=== PATIENT | male | born 1985 | race American Indian/Alaskan Native ===

== ENCOUNTER 2016-07-09 12:08 | Emergency (ER) | payer OTHER ==
[2016-07-09 12:16] VITALS: BMI 22.6
--- NOTE | 2016-07-09 13:24 | PDOC ---
[id number] No Limitations - History of Present Illness Initial Comments: 07/09/16 14:06 The patient is a 31 year old male with no significant past medical history who presents to the emergency department with abdominal pain for 3 days. He states his pain is localized to the suprapubic and right lower quadrant, which is dull and constant in nature and does not radiate. His pain is not associated with food. He reports associated nausea but denies any vomiting, diarrhea, melena, hematochezia. The patient denies dysuria, hematuria, frequency. He also reports a 3 week history of intermittent lightheadedness, however he denies any chest pain, syncope, or palpitations. The patient reports chills and night sweats, denies fever. No recent illness, no recent travel. <Violette Cid - Last Filed: 07/09/16 14:06> <Carlos Hernandez - Last Filed: 07/17/16 02:37> - General Chief Complaint: Pain, Acute Stated Complaint: ABD PAIN. DIZZINESS Time Seen by Provider: 07/09/16 13:24 Past History <Violette Cid - Last Filed: 07/09/16 14:06> - Past Medical History Other medical history: denies - Psycho/Social/Smoking Cessation Hx Suicidal Ideation: No Smoking History: Current every day smoker Number of Cigarettes Smoked Daily: 20 Information on smoking cessation initiated: Yes 'Breaking Loose' booklet given: 07/09/16 Substance Use Type: None <Carlos Hernandez - Last Filed: 07/17/16 02:37> - Past Medical History Allergies/Adverse Reactions: Allergies Allergy/AdvReac Type Severity Reaction Status Date / Time No Known Allergies Allergy Verified 07/09/16 12:11 Home Medications: Ambulatory Orders Acetaminophen [Tylenol] 650 mg PO Q4H PRN #20 tablet 07/09/16 Ciprofloxacin [Cipro -] 500 mg PO Q12H #20 tablet 07/09/16 Metronidazole [Flagyl -] 500 mg PO Q8H #30 tablet 07/09/16 NK [No Known Home Medication] 07/09/16 Ranitidine HCl [Zantac] 150 mg PO BID PRN #20 tablet 07/09/16 Review of Systems - Review of Systems Able to Perform ROS?: Yes Comments:: 07/09/16 14:06 CONSTITUTIONAL: +Chills. No fever, no fatigue EYES: No visual changes ENT: No ear pain, no sore throat CARDIOVASCULAR: No chest pain, no palpitations RESPIRATORY: No cough, no SOB GI: +Nausea, abdominal pain. No vomiting, no constipation, no diarrhea GENITOURINARY: No dysuria, no frequency, no hematuria MUSCULOSKELETAL: No back pain, no joint pain, no myalgias SKIN: No rash NEURO: No headache <Violette Cid - Last Filed: 07/09/16 14:06> *Physical Exam - Vital Signs Last Vital Signs Temp Pulse Resp BP Pulse Ox 98.1 F 84 14 131/75 99 07/09/16 12:11 07/09/16 12:11 07/09/16 12:11 07/09/16 12:11 07/09/16 12:11 - Physical Exam Comments: 07/09/16 14:06 CONSTITUTIONAL: Well-appearing; well-nourished; in no apparent distress HEAD: Normocephalic; atraumatic EYES: PERRL; EOM intact ENMT: External appears normal; normal oropharynx NECK: Supple; non-tender; no cervical lymphadenopathy CARD: Normal S1, S2; no murmurs, rubs, or gallops RESP: Normal chest excursion with respiration; breath sounds clear and equal bilaterally; no wheezes, rhonchi, or rales ABD: +Minimal periumbilical tenderness to palpation. Soft, non-distended; no palpable organomegaly EXT: Normal ROM in all four extremities; non-tender to palpation; distal pulses intact SKIN: Warm, dry, no rash NEURO: No focal neurological deficiencies. <Violette Cid - Last Filed: 07/09/16 14:06> - Vital Signs Last Vital Signs Temp Pulse Resp BP Pulse Ox 98.1 F 84 14 131/75 99 07/09/16 12:11 07/09/16 12:11 07/09/16 12:11 07/09/16 12:11 07/09/16 12:11 <Carlos Hernandez - Last Filed: 07/17/16 02:37> ED Treatment Course - Medications Given in the ED: ED Medications Discontinued Medications Generic Name Dose Route Start Last Admin Trade Name Freq PRN Reason Stop Dose Admin Ondansetron HCl 4 mg 07/09/16 13:53 07/09/16 14:00 Zofran Injection IVPUSH 07/09/16 13:54 4 mg ONCE ONE Administration <Violette Cid - Last Filed: 07/09/16 14:06> - LABORATORY CBC & Chemistry Diagram: 07/09/16 14:22 07/09/16 14:22 <Carlos Hernandez - Last Filed: 07/17/16 02:37> Medical Decision Making - Medical Decision Making 07/09/16 16:34 Patient is well-appearing 31-year-old male who presents with atraumatic right lower quadrant/periumbilical abdominal pain. CBC/CMP/UA within normal limit. Will obtain CT that and pelvis with by mouth and IV contrast to rule out appendicitis. Will reassess. Will endorse Dr. Lechuga. <Carlos Hernandez - Last Filed: 07/17/16 02:37> *DC/Admit/Observation/Transfer - Attestations Scribe Attestion: 07/09/16 14:06 Documentation prepared by Violette Cid, acting as medical secretary teacher for Carlos Hernandez MD. <Violette Cid - Last Filed: 07/09/16 14:06> - Attestations Physician Attestion: 07/09/16 16:34 The documentation was prepared by the scribe under my direct supervision. I have reviewed the documentation which correctly represents the findings, medical decision-making and critical action taken by me. <Calros Hernandez - Last Filed: 07/17/16 02:37> Diagnosis at time of Disposition: Colitis - Discharge Dispostion Disposition: HOME Condition at time of disposition: Stable - Prescriptions Prescriptions: Ciprofloxacin [Cipro -] 500 mg PO Q12H #20 tablet Metronidazole [Flagyl -] 500 mg PO Q8H #30 tablet Acetaminophen [Tylenol] 650 mg PO Q4H PRN #20 tablet PRN Reason: Pain/Fever Ranitidine HCl [Zantac] 150 mg PO BID PRN #20 tablet PRN Reason: GERD - Patient Instructions Printed Discharge Instructions: DI for Colitis Additional Instructions: Please take the two antibiotics (ciprofloxacin and flagyl) as prescribed for the next 10 days. Take 650 mg tylenol every 4 hours as needed for pain/fever. Take 150 mg zantac every 12 hours as needed for acid reflux. Follow up with a computer systems design analyst for an evaluation for a possible colonoscopy. A few percentage of these may be inflammatory, which is why it's important to complete the antibiotics and follow up wit [facility].
[2016-07-09] MEDS ORDERED: ONDANSETRON 4 MG/2 ML VIAL IVPUSH ONE (13:53)
[2016-07-09] MEDS ORDERED: SODIUM CHLORIDE 1,000 ML IV STA (13:53)
[2016-07-09] MEDS ORDERED: ONDANSETRON 4 MG/2 ML VIAL ONE (13:56)
[2016-07-09 14:47] LABS: BASOPHIL 0.7 % (0-2.0); EOSINOPHIL 1.5 % (0-4.5); MCH 29.9 pg (25.7-33.7); MCHC 32.8 g/dl (32.0-35.9); MEAN CELL VOLUME 91.1 fl (80-96); MEAN PLT VOLUME 10.1 fl (7.5-11.1); NEUTROPHILS 55.4 % (42.8-82.8); PLATELET COUNT 160 K/MM3 (134-434); RDW 14.2 % (11.9-15.9); WHITE BLOOD COUNT 8.1 K/mm3 (4.0-10.0)
[2016-07-09 15:01] LABS: ALBUMIN 4.3 g/dl (3.4-5.0); ALK PHOS 85 U/L (45-117); ANION GAP 8 (8-16); BILIRUBIN,TOTAL 0.3 mg/dL (0.2-1.0); CO2 25 mmol/L (21-32); CREATININE 0.9 mg/dL (0.7-1.3); GLUCOSE,RANDOM 82 mg/dL (74-106); SGOT/AST 29 U/L (15-37); TOT PROT 7.4 g/dl (6.4-8.2)
[2016-07-09 15:06] LABS: SGPT/ALT 46 U/L (12-78)
[2016-07-09 15:39] LABS: URINE APPEARANCE CLEAR; URINE BILIRUBIN NEGATIVE (NEGATIVE); URINE BLOOD NEGATIVE (NEGATIVE); URINE COLOR COLORLESS; URINE GLUCOSE (UA) NEGATIVE (NEGATIVE); URINE KETONE NEGATIVE (NEGATIVE); URINE LEUK ESTERASE NEGATIVE (NEGATIVE); URINE NITRITE NEGATIVE (NEGATIVE); URINE PROTEIN NEGATIVE (NEGATIVE); URINE UROBILINOGEN NEGATIVE E.U./dl (0.2-1.0)
[2016-07-09] MEDS ORDERED: CIPROFLOXACIN 250 MG TABLET (RESTRICTED TO ID) PO ONE (18:04)
[2016-07-09] MEDS ORDERED: metroNIDAZOLE 500 MG TABLET PO ONE (18:04)
[2016-07-09] MEDS ORDERED: ACETAMINOPHEN 325 MG TABLET (FP) PO ONE (18:10)
[2016-07-09] MEDS ORDERED: RANITIDINE HCL 150 MG TABLET (FP) PO ONE (18:10)
--- NOTE | 2016-07-09 18:12 | PDOC ---
*Physical Exam - Vital Signs Last Vital Signs Temp Pulse Resp BP Pulse Ox 98.1 F 84 14 131/75 100 07/09/16 12:11 07/09/16 12:11 07/09/16 12:11 07/09/16 12:11 07/09/16 13:30 ED Treatment Course - LABORATORY CBC & Chemistry Diagram: 07/09/16 14:22 07/09/16 14:22 - ADDITIONAL ORDERS Additional order review: Laboratory Results 07/09/16 07/09/16 15:10 14:22 Sodium 141 Potassium 4.2 Chloride 108 H Carbon Dioxide 25 Anion Gap 8 BUN 9 Creatinine 0.9 Creat Clearance w eGFR > 60 Random Glucose 82 Calcium 9.0 Total Bilirubin 0.3 AST 29 ALT 46 Alkaline Phosphatase 85 Total Protein 7.4 Albumin 4.3 Urine Color Colorless Urine Appearance Clear Urine pH 7.0 Ur Specific Kennard 1.005 Urine Protein Negative Urine Glucose (UA) Negative Urine Ketones Negative Urine Blood Negative Urine Nitrite Negative Urine Bilirubin Negative Urine Urobilinogen Negative Ur Leukocyte Esterase Negative 07/09/16 14:22 RBC 5.03 MCV 91.1 MCHC 32.8 RDW 14.2 MPV 10.1 Neutrophils % 55.4 Lymphocytes % 34.4 Monocytes % 8.0 Eosinophils % 1.5 Basophils % 0.7 - Medications Given in the ED: ED Medications Discontinued Medications Generic Name Dose Route Start Last Admin Trade Name Freq PRN Reason Stop Dose Admin Sodium Chloride 1,000 mls @ 1,000 mls/hr 07/09/16 13:53 07/09/16 14:00 Normal Saline - IV 07/09/16 14:52 1,000 mls/hr ASDIR STA Administration Ondansetron HCl 4 mg 07/09/16 13:53 07/09/16 14:00 Zofran Injection IVPUSH 07/09/16 13:54 4 mg ONCE ONE Administration Medical Decision Making - Medical Decision Making 07/09/16 18:16 Sign-out received from outgoing Emergency Physician Dr. Hernandez Pt interviewed and examined Ancillary studies reviewed Case discussed in detail with oncoming Emergency Physician including history, physical exam and ancillary studies. Vital Signs Temp Pulse Resp BP Pulse Ox 98.1 F 84 14 131/75 100 07/09/16 12:11 07/09/16 12:11 07/09/16 12:11 07/09/16 12:11 07/09/16 13:30 CBC, BMP 07/09/16 14:22 07/09/16 14:22 CMP Sodium 141 mmol/L (136-145) 07/09/16 14:22 Potassium 4.2 mmol/L (3.5-5.1) 07/09/16 14:22 Chloride 108 mmol/L (98-107) H 07/09/16 14:22 Carbon Dioxide 25 mmol/L (21-32) 07/09/16 14:22 Anion Gap 8 (8-16) 07/09/16 14:22 BUN 9 mg/dL (7-18) 07/09/16 14:22 Creatinine 0.9 mg/dL (0.7-1.3) 07/09/16 14:22 Creat Clearance w eGFR > 60 (>60) 07/09/16 14:22 Random Glucose 82 mg/dL (74-106) 07/09/16 14:22 Calcium 9.0 mg/dL (8.5-10.1) 07/09/16 14:22 Total Bilirubin 0.3 mg/dL (0.2-1.0) 07/09/16 14:22 AST 29 U/L (15-37) 07/09/16 14:22 ALT 46 U/L (12-78) 07/09/16 14:22 Alkaline Phosphatase 85 U/L (45-117) 07/09/16 14:22 Total Protein 7.4 g/dl (6.4-8.2) 07/09/16 14:22 Albumin 4.3 g/dl (3.4-5.0) 07/09/16 14:22 CT scan of abdomen and pelvis. Questionable rectosigmoid thickening. Will treat as colitis. Will prescribe cipro and flagyl. I instructed the patient that a small percentage of these may be inflammatory, ie Crohn's Disease, UC Pt verbalizes understanding, stating he will follow up with a GI doctor. I discussed the physical exam findings, ancillary test results and final diagnoses with the patient. I answered all of the patient's questions. The patient was satisfied with the care received and felt comfortable with the discharge plan and treatment plan. The patient will call their primary care physician within 24 hours to arrange follow-up and will return to the Emergency Department with any new, persistant or worsening symptoms. *DC/Admit/Observation/Transfer Diagnosis at time of Disposition: Colitis - Discharge Dispostion Disposition: HOME Condition at time of disposition: Stable Admit: No - Prescriptions Prescriptions: Ciprofloxacin [Cipro -] 500 mg PO Q12H #20 tablet Metronidazole [Flagyl -] 500 mg PO Q8H #30 tablet Acetaminophen [Tylenol] 650 mg PO Q4H PRN #20 tablet PRN Reason: Pain/Fever Ranitidine HCl [Zantac] 150 mg PO BID PRN #20 tablet PRN Reason: GERD - Patient Instructions Printed Discharge Instructions: DI for Colitis Additional Instructions: Please take the two antibiotics (ciprofloxacin and flagyl) as prescribed for the next 10 days. Take 650 mg tylenol every 4 hours as needed for pain/fever. Take 150 mg zantac every 12 hours as needed for acid reflux. Follow up with a mediation commissioner for an evaluation for a possible colonoscopy. A few percentage of these may be inflammatory, which is why it's important to complete the antibiotics and follow up wit [facility].
[2016-07-09] MEDS ORDERED: RANITIDINE HCL 150 MG TABLET (FP) ONE (18:20)
[2016-07-09] MEDS ORDERED: ACETAMINOPHEN 325 MG TABLET (FP) ONE (18:20)
[2016-07-09] MEDS ORDERED: metroNIDAZOLE 250 MG TABLET ONE (18:20)
[2016-07-09 18:47] VITALS: BP 128/74; PULSE 77; TEMP 98.3
== END 2016-07-09 18:52 | disposition home or self-care (01) ==
LOC: JER 12:08
PROC: 3E033GC Introduction of Other Therapeutic Substance into Peripheral Vein, Percutaneous Approach (ICD-10-PCS; principal; 2016-07-09)
DX: K52.9 Noninfective gastroenteritis and colitis, unspecified (principal)
CPT/HCPCS: 36415; 74177-TC; 80053; 81003; 85025; 99283-25; Q9967

== ENCOUNTER 2016-09-27 23:58 | Emergency (ER) | payer OTHER ==
[2016-09-28 00:22] VITALS: BMI 23.3
--- NOTE | 2016-09-28 00:34 | PDOC ---
History of Present Illness - General History Source: Patient Exam Limitations: No Limitations - History of Present Illness Initial Comments: 09/28/16 00:45 The patient is a 31 year old male with history of daily cigarette smoking who presents to the ED complaining of 2 days of left sided chest pain, pressure like in nature, ranked 4/10, worse today, with associated nausea. 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 No fever or chills. No vomiting or diarrhea. No family history of early cardiac demise. <Ying Nix - Last Filed: 09/28/16 00:51> <Jazmine Tony - Last Filed: 09/28/16 23:30> - General Chief Complaint: Chest Pain Stated Complaint: CHEST PAIN Time Seen by Provider: 09/28/16 00:29 Past History <Ying Nix - Last Filed: 09/28/16 00:51> - Psycho/Social/Smoking Cessation Hx Suicidal Ideation: No Smoking History: Current every day smoker Number of Cigarettes Smoked Daily: 20 Information on smoking cessation initiated: No 'Breaking Loose' booklet given: 07/09/16 Substance Use Type: None <Jazmine Tony - Last Filed: 09/28/16 23:30> - Past Medical History Allergies/Adverse Reactions: Allergies Allergy/AdvReac Type Severity Reaction Status Date / Time No Known Allergies Allergy Verified 09/28/16 00:22 Home Medications: Ambulatory Orders Aspirin [Ecotrin] 325 mg PO ONCE 09/28/16 Review of Systems - Review of Systems Able to Perform ROS?: Yes Comments:: 09/28/16 00:48 GENERAL/CONSTITUTIONAL: No fever or chills. No weakness. HEAD, EYES, EARS, NOSE AND THROAT: No change in vision. No ear pain or discharge. No sore throat CARDIOVASCULAR: +L chest pain. No palpitations or lightheadedness. No peripheral edema. RESPIRATORY: No cough, wheezing, or hemoptysis. GASTROINTESTINAL: +Nausea. No abdominal pain, vomiting, diarrhea or constipation. GENITOURINARY: No dysuria, frequency, or change in urination. MUSCULOSKELETAL: No joint or muscle swelling or pain. No neck or back pain. SKIN: No rash NEUROLOGIC: No headache, vertigo, loss of consciousness, or change in strength/ sensation. ENDOCRINE: No increased thirst. No abnormal weight change. HEMATOLOGIC/LYMPHATIC: No anemia, easy bleeding, or history of blood clots. ALLERGIC/IMMUNOLOGIC: No hives or skin allergy. <Ying Nix - Last Filed: 09/28/16 00:51> *Physical Exam - Vital Signs Last Vital Signs Temp Pulse Resp BP Pulse Ox 98.8 F 100 H 18 160/89 99 09/28/16 00:20 09/28/16 00:20 09/28/16 00:20 09/28/16 00:20 09/28/16 00:20 - Physical Exam Comments: 09/28/16 00:50 GENERAL: Awake, alert, and fully oriented, in no acute distress HEAD: No signs of trauma EYES: PERRLA, EOMI, sclera anicteric, conjunctiva clear ENT: Auricles normal inspection, hearing grossly normal, nares patent, oropharynx clear without exudates. Moist mucosa NECK: Normal ROM, supple, no lymphadenopathy, JVD, or masses LUNGS: Breath sounds equal, clear to auscultation bilaterally. No wheezes, and no crackles HEART: Regular rate and rhythm, normal S1 and S2, no murmurs, rubs or gallops ABDOMEN: Soft, nontender, normoactive bowel sounds. No guarding, no rebound. No masses EXTREMITIES: Normal range of motion, no edema. No clubbing or cyanosis. No cords, erythema, or tenderness NEUROLOGICAL: Cranial nerves II through XII grossly intact. Normal speech, normal gait SKIN: Warm, Dry, normal turgor, no rashes or lesions noted. <Ying Nix - Last Filed: 09/28/16 00:51> - Vital Signs Last Vital Signs Temp Pulse Resp BP Pulse Ox 98.8 F 100 H 18 160/89 99 09/28/16 00:20 09/28/16 00:20 09/28/16 00:20 09/28/16 00:20 09/28/16 00:20 <Jazmine Tony - Last Filed: 09/28/16 23:30> Heart Score/ECG Review #1 09/28/16 00:52 EKG obtained 0:18. Sinus tachycardia at 109 bpm. <Ying Nix - Last Filed: 09/28/16 00:51> ED Treatment Course - LABORATORY CBC & Chemistry Diagram: 09/28/16 01:15 09/28/16 01:15 <Jazmine Tony - Last Filed: 09/28/16 23:30> Medical Decision Making - Medical Decision Making 09/28/16 23:29 Pt comes with CP and elevated BP today, but no hx of HTN. Labs normal, exam normal, EKG and CXR normal. He will be discharged. Follow with PMD; smoking cessation; exercise and low salt diet all discussed. <Jazmine Tony - Last Filed: 09/28/16 23:30> *DC/Admit/Observation/Transfer - Attestations Scribe Attestion: 09/28/16 00:50 Documentation prepared by Ying Nix, acting as medical technician for Jazmine Tony MD. <Ying Nix - Last Filed: 09/28/16 00:51> - Discharge Dispostion Admit: No <Jazmine Tony - Last Filed: 09/28/16 23:30> Diagnosis at time of Disposition: Atypical chest pain - Discharge Dispostion Disposition: HOME Condition at time of disposition: Stable - Referrals Referrals: Eliazar Sanderson MD [Primary Care Provider] - Ben Mac MD [Staff Physician] - - Patient Instructions Printed Discharge Instructions: DI for Atypical Chest Pain
[2016-09-28 01:35] LABS: BASOPHIL 0.6 % (0-2.0); EOSINOPHIL 1.5 % (0-4.5); MCH 29.6 pg (25.7-33.7); MCHC 33.1 g/dl (32.0-35.9); MEAN CELL VOLUME 89.3 fl (80-96); MEAN PLT VOLUME 9.5 fl (7.5-11.1); NEUTROPHILS 69.5 % (42.8-82.8); PLATELET COUNT 209 K/MM3 (134-434); RDW 14.1 % (11.9-15.9)
[2016-09-28 01:47] LABS: INR 0.93 (0.82-1.09); PROTHROMBIN TIME (PATIENT) 10.2 SEC (9.98-11.88)
[2016-09-28 02:04] LABS: ALBUMIN 4.2 g/dl (3.4-5.0); ANION GAP 6 (8-16); BILIRUBIN,TOTAL 0.2 mg/dL (0.2-1.0); CO2 28 mmol/L (21-32); COCKROFT - GAULT 89.68; CREATININE 1.1 mg/dL (0.7-1.3); GLUCOSE,RANDOM 101 mg/dL (74-106); SGOT/AST 26 U/L (15-37); SGPT/ALT 51 U/L (12-78); TOT PROT 7.4 g/dl (6.4-8.2)
[2016-09-28 02:07] LABS: ALK PHOS 90 U/L (45-117); TROPONIN I < 0.02 ng/ml (0.00-0.05)
[2016-09-28 03:47] VITALS: BP 149/82; PULSE 88; TEMP 98.2
--- NOTE | 2016-09-29 10:41 | EKG ---
Test Reason : Blood Pressure : / mmHG Vent. Rate : 109 BPM Atrial Rate : 109 BPM P-R Int : 136 ms QRS Dur : 082 ms QT Int : 326 ms P-R-T Axes : 061 060 056 degrees QTc Int : 439 ms SINUS TACHYCARDIA POSSIBLE LEFT ATRIAL ENLARGEMENT BORDERLINE ECG NO PREVIOUS ECGS AVAILABLE Confirmed by ALLIE GAMA, TERE ([id number]) on 09/29/2016 10:41:05 AM Referred By: Confirmed By:TERE KELLEY MD
== END 2016-09-28 03:47 | disposition home or self-care (01) ==
LOC: JER 23:58
DX: R07.89 Other chest pain (principal); R03.0 Elevated blood-pressure reading, without diagnosis of hypertension; F17.210 Nicotine dependence, cigarettes, uncomplicated
CPT/HCPCS: 36415; 71020-TC; 80053; 82550; 82553; 84484; 85025; 85610; 93005; 93010; 99283-25

== ENCOUNTER 2020-06-11 04:33 | Day surgery (SDC) | payer OTHER ==
[2020-06-07 14:45] VITALS: BMI 23.3
[2020-06-11] MEDS ORDERED: MIDAZOLAM HCL 2 MG/2 ML SINGLE DOSE VIAL ONE (15:32)
[2020-06-11] MEDS ORDERED: PROPOFOL 20 ML ONE (15:40)
[2020-06-11 17:47] VITALS: TEMP 97.9
[2020-06-11 17:59] VITALS: BP 112/73; PULSE 70
== END 2020-06-11 17:10 | disposition home or self-care (01) ==
LOC: JASU-SURG 04:33
PROVIDERS: ATTEND Urology
PROC: 0TF4XZZ Fragmentation in Left Kidney Pelvis, External Approach (ICD-10-PCS; principal; 2020-06-11 13:30)
DX: N20.0 Calculus of kidney (principal)

== ENCOUNTER 2022-02-28 20:07 | Emergency (ER) | payer OTHER ==
[2022-02-28 20:16] VITALS: BP 124/83; RESP 18; TEMP 98.6; BMI 27.4
[2022-02-28] MEDS ORDERED: ALBUTEROL SO4 2.5/IPRATROPIUM 0.5 INH SOL 3 ML VIAL.NEB. NEB ONE (20:58)
[2022-02-28] MEDS ORDERED: methylPREDNISolone NA SUCC 125 MG/2 ML VIAL IVPB ONE (20:58)
[2022-02-28] MEDS ORDERED: methylPREDNISolone NA SUCC 125 MG/2 ML VIAL ONE (21:05)
[2022-02-28 22:09] VITALS: PULSE 80
== END 2022-02-28 22:15 | disposition home or self-care (01) ==
LOC: JERFT 20:07
PROC: 3E033NZ Introduction of Analgesics, Hypnotics, Sedatives into Peripheral Vein, Percutaneous Approach (ICD-10-PCS; principal; 2022-02-28)
PROC: 3E0F7GC Introduction of Other Therapeutic Substance into Respiratory Tract, Via Natural or Artificial Opening (ICD-10-PCS; 2022-02-28)
DX: R05.1 Acute cough (principal)
CPT/HCPCS: 0241U-QW; 71046-TC-FY; 99284-25